=== PATIENT | female | born 1995 ===

== ENCOUNTER 2023-05-01 11:27 | Emergency (ER) | payer MEDICAID, SELFPAY ==
--- NOTE | 2023-05-01 11:30 | ED.HA ---
HPI - Headache General Chief Complaint: Headache Stated Complaint: Headaches Time Seen by Provider: 05/01/23 13:36 Source: patient Mode of arrival: ambulatory Limitations: no limitations History of Present Illness HPI Narrative: 27-year-old female without significant medical history presents to the emergency department with frontal headache, pressure bilaterally, and intermittent left eye pressure without visual changes or pain with eye movement, this started 2 weeks ago and has been present intermittently ever since then. Under alot of stressors, reports recently seperated, kids are in [facility], feels overwhelmed. Stress makes the headache worse, unable to tell me would also makes it better worse. Pain is not improved by lying flat. She does report that when she takes ibuprofen the pain improves however it comes back. No SI or HI. No hallucinations. Patient denies dizziness, head trauma, fevers, chills, neck pain, chest pain, shortness of breath, vision changes, dizziness, weakness, changes in speech, difficulties with gait. NIH stroke scale 0. Related Data Previous Rx's Medication Instructions Recorded diphenhydramine HCl 25 mg capsule 25 mg PO TID PRN allergic reaction 05/01/23 (Benadryl) #20 caps ketorolac 10 mg tablet 10 mg PO TID PRN pain 5 days #15 05/01/23 tabs metoclopramide HCl 10 mg tablet 10 mg PO Q6H PRN headache #20 tabs 05/01/23 (Reglan) Allergies Allergy/AdvReac Type Severity Reaction Status Date / Time No Known Allergies Allergy Verified 05/01/23 11:30 Review of Systems Review of Systems: Constitutional : No Fever, No Chills, No Fatigue ENT/Mouth : No sore throat, No Rhinorrhea Eyes: No Eye Pain, No Swelling, No Redness Cardiovascular : No Chest Pain, No SOB, No Dyspnea on Exertion Respiratory : No Cough, No Sputum Gastrointestinal : No Nausea, No Vomiting, No Diarrhea, No abdominal Pain Genitourinary : No Dysuria, No Urinary Frequency, No Hematuria, Musculoskeletal : No joint pain, No Myalgias, No Joint Swelling Skin : No Skin Lesions, No rash Neuro : No Weakness, No Numbness, No Dizziness, + Headache Psych : + Anxiety/Panic, + Depression, No SI or HI Heme/Lymph: No Bruising, No Bleeding,No Lymphadenopathy Endocrine : No Polyuria, No Polydipsia All other systems reviewed and are negative Yes all other systems are reviewed and are negative [facility] Past Medical History Attestation statement: The following information was validated with the patient. Source: old records reviewed and nursing notes reviewed Social History Social History Alcohol intake: current Alcohol intake frequency: holidays/special occasions only Smoked in Last 30 Days: No Use of substances other than those prescribed or required for medical reasons: Yes Substance Use Type: Marijuana Advance Directives: No Advance Directives Information Provided: Yes Patient : No Physical Exam Vital Signs: Vital Signs: Last Vital Signs Temp 98.3 F 05/01/23 13:52 Pulse 49 L 05/01/23 13:52 Resp 16 05/01/23 13:52 BP 116/58 L 05/01/23 13:52 Pulse Ox 100 05/01/23 13:52 O2 Del Method Room Air 05/01/23 13:52 BMI result Body Mass Index 27.4 Vital signs stable Appearance: Alert.? Oriented X3.? No acute distress.? Head: Normocephalic, atraumatic, no step-offs or deformities Eyes: Pupils equal, round and reactive to light.? Extraocular movements intact and pain-free. ENT: Pharynx normal.? Neck: Normal inspection.? Neck supple.? CVS: Normal heart rate and rhythm.? Pulses normal.? Respiratory: No respiratory distress.? Breath sounds normal.? Abdomen: Soft and nontender.? Skin: Skin warm and dry.? Normal skin color.? Normal skin turgor.? Extremities: No lower extremity edema.? No calf ttp. 5/5 strength to bilateral upper and lower extremities Neuro: Oriented X 3.? No motor deficit.? No sensory deficit. CN 2-12 intact normal [id number], [id number], steady tandem gait with normal coordination. Course Course Course Narrative: This is an RME: Additional HPI, ROS, PE not included below will be deferred to primary provider. Patient is a 27-year-old female who presents emergency department for evaluation of headaches. Onset 1-2 weeks ago, has been intermittent, diffuse, alleviates with tylenol. Denies fever, neck pain/stiffness, photosensitivity, nausea, vomiting, vision changes. Plan: Serum labs, hCG, pain management, placed in waiting room pending bed availability Reevaluation(s) Reevaluation #1: CBC unremarkable. Chemistry with no acute findings requiring intervention. UA pending, urine pending. Ordered Toradol, Reglan and Benadryl, pending re-evaluation likely discharge home. Time: 13:44 Reevaluation #2: This patient does not require a full care team consult no SI, HI or psychosis, vague complaints of depression and anxiety however, I did speak to care team who will provide patient with outpatient providers and resources. Time: 13:57 Reevaluation #3: Inflammatory markers within normal limits. Unlikely vasculitis or temporal arteritis. Pending improvement. Time: 14:33 Additional Reevaluation(s): Patient reports she is feeling much better. Reports some soreness to injection site of Toradol I explained to her and reassured her that this is normal. Advised her to apply warm compresses. Will discharge home on Reglan, Benadryl and Toradol. Will give her Neurology follow-up. Educated patient on diagnosis and treatment plan, answered all question, patient verbalizes understanding. At this time patient will be discharged home, advised to return with new or worsening symptoms. Educated on worrisome signs and symptoms and when to return. At this time I feel comfortable discharge home. At time of discharge negative NIH stroke scale. Patient feeling better. Reassuring Medications Administered Discontinued Medications Generic Name Dose Route Start Last Admin Trade Name Freq PRN Reason Stop Dose Admin Diphenhydramine HCl 25 mg 05/01/23 13:43 05/01/23 14:23 Diphenhydramine Hcl 25 Mg Capsule PO 05/01/23 13:44 25 mg ONCE ONE Administration Ketorolac Tromethamine 30 mg 05/01/23 13:43 05/01/23 14:23 Ketorolac Tromethamine 30 Mg/Ml Vial IM 05/01/23 13:44 30 mg ONCE ONE Administration Metoclopramide HCl 10 mg 05/01/23 13:43 05/01/23 14:23 Metoclopramide Hcl 10 Mg Tablet PO 05/01/23 13:44 10 mg ONCE ONE Administration Medical Decision Making Medical Decision Making MDM Narrative: 19-year-old female presents with frontal headache described as tightness for the past 2 weeks and left eye pressure. Intermittent. Physical exam benign. Neuro nonfocal. Cerebellar intact. NIH stroke scale 0. Patient tearful. Likely headache secondary to stress ( tension type) unlikely intracranial hemorrhage, stroke, posterior stroke, temporal arteritis, giant cell arteritis. History and physical exam not consistent with meningitis or encephalitis. History and physical exam not consistent with wet macular degeneration or acute closed angle glaucoma, no visual loss, she just feels pressure behind her eyes sometimes. Unlikely that this is pseudotumor cerebri Plan at this time labs, pain control Differential Diagnosis Differential Diagnoses: The differential diagnosis associated with the presentation includes Likely headache secondary to stress ( tension type) unlikely intracranial hemorrhage, stroke, posterior stroke, temporal arteritis, giant cell arteritis. History and physical exam not consistent with meningitis or encephalitis. History and physical exam not consistent with wet macular degeneration or acute closed angle glaucoma, no visual loss, she just feels pressure behind her eyes sometimes. Unlikely that this is pseudotumor cerebri Admission/Observation Consideration of admission/observation: Escalation of care including admission/observation considered Unlikely Lab Data MDM Lab Attestation statement: I reviewed the patient's lab results. 05/01/23 12:04 05/01/23 12:04 Labs: Lab Results 05/01/23 05/01/23 05/01/23 Range/Units 12:04 12:04 14:11 WBC 7.9 (4.8-10.8) X10*3/uL RBC 4.03 L (4.20-5.50) X10*6/uL Hgb 12.5 (12.0-16.0) g/dl Hct 37.4 (37.0-47.0) % MCV 92.8 (80.0-98.0) fL MCH 31.0 (27.0-33.0) pg MCHC 33.4 (31.0-35.0) g/dl RDW 12.6 (11.0-16.0) % Plt Count 232 (160-400) X10*3/uL MPV 9.2 L (9.4-12.3) fL Immature Gran % (Auto) 0.3 (0.0-0.4) % Neut % (Auto) 81.5 H (45-73) % Lymph % (Auto) 12.1 L (20-40) % [place] % (Auto) 5.5 (2-11) % Eos % (Auto) 0.3 (0-4) % Baso % (Auto) 0.3 (0-2) % Lymph # (Auto) 1.0 L (1.2-4.9) X10*3/uL [place] # (Auto) 0.4 (0.1-1.2) X10*3/uL Eos # (Auto) 0.0 (0.0-0.4) X10*3/uL Baso # (Auto) 0.0 (0.0-0.2) X10*3/uL Abs Immat Gran (auto) 0.02 (0.00-0.03) X10*3/uL Absolute Neuts (auto) 6.4 (2.0-8.3) x10*3/uL Absolute Nucleated RBC 0.000 (0.0-0.012) X10*3/uL Nucleated RBC % (auto) 0.0 (0.0-0.2) /100WBC Sodium 141 (135-145) mmol/L Potassium 4.1 (3.3-5.1) mmol/L Chloride 108 (96-108) mmol/L Carbon Dioxide 26 (22-29) mmol/L Anion Gap 11 L (12-20) BUN 8 L (9-16) mg/dL Creatinine 0.76 (0.5-1.4) mg/dL Estim Creat Clear Calc 95.6 Estimated GFR > 60 Random Glucose 102 (60-115) mg/dL Calcium 9.3 (8.4-10.2) mg/dL Magnesium 1.9 (1.6-2.6) mg/dL C-Reactive Protein 0.20 (< or = 0.50) mg/dL Urine Color Yellow Urine Appearance Clear Urine pH 6.5 (5.0-9.0) Ur Specific [place] 1.015 (1.005-1.025) Urine Protein Negative (Neg-Trace) mg/dL Urine Glucose (UA) Negative (Negative) mg/dL Urine Ketones Trace (Negative) mg/dL Urine Blood Negative (Negative) Urine Nitrite Negative (Negative) Ur Leukocyte Esterase Negative (Negative) Urine Test (NEGATIVE) 05/01/23 Range/Units 14:11 WBC (4.8-10.8) X10*3/uL RBC (4.20-5.50) X10*6/uL Hgb (12.0-16.0) g/dl Hct (37.0-47.0) % MCV (80.0-98.0) fL MCH (27.0-33.0) pg MCHC (31.0-35.0) g/dl RDW (11.0-16.0) % Plt Count (160-400) X10*3/uL MPV (9.4-12.3) fL Immature Gran % (Auto) (0.0-0.4) % Neut % (Auto) (45-73) % Lymph % (Auto) (20-40) % [place] % (Auto) (2-11) % Eos % (Auto) (0-4) % Baso % (Auto) (0-2) % Lymph # (Auto) (1.2-4.9) X10*3/uL [place] # (Auto) (0.1-1.2) X10*3/uL Eos # (Auto) (0.0-0.4) X10*3/uL Baso # (Auto) (0.0-0.2) X10*3/uL Abs Immat Gran (auto) (0.00-0.03) X10*3/uL Absolute Neuts (auto) (2.0-8.3) x10*3/uL Absolute Nucleated RBC (0.0-0.012) X10*3/uL Nucleated RBC % (auto) (0.0-0.2) /100WBC Sodium (135-145) mmol/L Potassium (3.3-5.1) mmol/L Chloride (96-108) mmol/L Carbon Dioxide (22-29) mmol/L Anion Gap (12-20) BUN (9-16) mg/dL Creatinine (0.5-1.4) mg/dL Estim Creat Clear Calc Estimated GFR Random Glucose (60-115) mg/dL Calcium (8.4-10.2) mg/dL Magnesium (1.6-2.6) mg/dL C-Reactive Protein (< or = 0.50) mg/dL Urine Color Urine Appearance Urine pH (5.0-9.0) Ur Specific [place] (1.005-1.025) Urine Protein (Neg-Trace) mg/dL Urine Glucose (UA) (Negative) mg/dL Urine Ketones (Negative) mg/dL Urine Blood (Negative) Urine Nitrite (Negative) Ur Leukocyte Esterase (Negative) Urine Test NEGATIVE (NEGATIVE) Tests considered The following testing was considered but not selected: No red flag symptoms, neuro non focal, NIH stroke scale 0. No indication for CT of head or MRI of brain. Low suspicion for stroke. No need for lumbar puncture unlikely meningitis or encephalitis. Prescription Management I considered prescription management with: Pain Medication Core Measures AMI core measures followed: Yes Measure exclusions: not indicated Critical Care Time Critical Care Time Critical Care Time: No Discharge Plan Discharge Clinical Impression: Headache, Anxiety, Depression Patient Disposition: Home, Self-Care Instructions: Depression (ED), Acute Headache (ED), Anxiety (ED) Additional Instructions: Take your medications as prescribed. If you were prescribed antibiotics today, it is important that you take your medication to their entirety, do not skip any doses, do not finish them early. Follow-up with your primary care provider this week. Return to the emergency department with new or worsening symptoms. Such as fevers, chills, chest pain, shortness of breath, nausea, vomiting, dizziness, headache, vision changes, lethargy, suicidal or homicidal ideation In case of emergency call 911 Follow-up with neurology if needed. Toradol has been sent to your pharmacy, you tolerated this well in the department. Please take this as prescribed do not take this with ibuprofen, or other NSAIDs, do not mix this with alcohol. Side effects of this medication including increased risk for bleeding and possible kidney injury. Please take Reglan and Benadryl together, do not take Reglan alone he can cause involuntary muscle spasms. [place] abeba medicamentos seg?n lo prescrito. Si le recetaron antibi?ticos hoy, es importante que tome [place] medicamento en [place] totalidad, no se salte ninguna dosis, no los termine antes de tiempo. Seguimiento con [place] proveedor de atenci?n primaria esta semana. Regrese al departamento de emergencias con s?ntomas nuevos o que empeoran. Isabela fiebre, escalofr?os, dolor de pecho, dificultad para respirar, n?useas, v?mitos, mareos, dolor de leila, cambios en la visi?n, letargo, ideaci?n suicida u homicida. En damaris de emergencia llama al 911 Seguimiento con neurolog?a si es necesario. Toradol rosales sido enviado a [place] farmacia, lo anson? sundar en el departamento. T?gutierrez seg?n lo recetado, no lo tome con ibuprofeno u otros YULI, no lo mezcle con alcohol. Los efectos secundarios de arelis medicamento incluyen un mayor riesgo de sangrado y posible lesi?n renal. Por favor, tome Reglan y Benadryl juntos, no tome Reglan solo, puede causar espasmos musculares involuntarios. Prescriptions: New ketorolac 10 mg tablet 10 mg PO TID PRN (Reason: pain) 5 Days Qty: 15 0RF diphenhydramine HCl [Benadryl] 25 mg capsule 25 mg PO TID PRN (Reason: allergic reaction) Qty: 20 0RF metoclopramide HCl [Reglan] 10 mg tablet 10 mg PO Q6H PRN (Reason: headache) Qty: 20 0RF Referrals: [facility] [Provider Group] - 2 days Physician,Unknown J [Primary Care Provider] - 2 days Stand Alone Forms: Work/School Release
[2023-05-01 11:31] VITALS: BP 112/53; PULSE 58; RESP 18; TEMP 36.6; O2SAT 97; BMI 27.4
[2023-05-01 12:08] LABS: MANUAL DIFF FLAG NO
[2023-05-01 12:10] LABS: Basophils Percent Auto 0.3 % (0-2); Eosinophils Percent Auto 0.3 % (0-4); Hematocrit 37.4 % (37.0-47.0); Hemoglobin 12.5 g/dl (12.0-16.0); Imm Gran Abs Auto 0.02 X10*3/uL (0.00-0.03); Imm Gran Pct Auto 0.3 % (0.0-0.4); Lymphocytes Percent Auto 12.1 % (20-40); Mean Corpuscular HGB Conc 33.4 g/dl (31.0-35.0); Mean Corpuscular Volume 92.8 fL (80.0-98.0); Mean Platelet Volume 9.2 fL (9.4-12.3); Monocytes Absolute Auto 0.4 X10*3/uL (0.1-1.2); Monocytes Percent Auto 5.5 % (2-11); Neutrophils Absolute Auto 6.4 x10*3/uL (2.0-8.3); Neutrophils Percent Auto 81.5 % (45-73); Platelet Count 232 X10*3/uL (160-400); Red Blood Count 4.03 X10*6/uL (4.20-5.50); Red Cell Distribution Width 12.6 % (11.0-16.0); White Blood Count 7.9 X10*3/uL (4.8-10.8)
[2023-05-01 12:24] LABS: Anion Gap 11 (12-20); Blood Urea Nitrogen 8 mg/dL (9-16); Calcium 9.3 mg/dL (8.4-10.2); Carbon Dioxide 26 mmol/L (22-29); Chloride 108 mmol/L (96-108); Creatinine Clr Calc Pharmacy 95.6; Estimated Glomerular Filt Rate > 60; Glucose Random 102 mg/dL (60-115); Magnesium 1.9 mg/dL (1.6-2.6); Potassium 4.1 mmol/L (3.3-5.1); Sodium 141 mmol/L (135-145)
[2023-05-01 13:52] VITALS: BP 116/58; PULSE 49; RESP 16; TEMP 36.8; O2SAT 100
[2023-05-01 14:19] LABS: Appearance Urine Clear; Color Urine Yellow; Glucose Urine UA Negative (Negative); Leukocyte Esterase Urine Negative (Negative); Nitrite Urine Negative (Negative); PH 6.5 (5.0-9.0); Specific Gravity - Urine 1.015 (1.005-1.025); Urine Blood Negative (Negative); Urine Ketones Trace mg/dL (Negative); Urine Protein Negative (Neg-Trace)
[2023-05-01 14:20] LABS: UPreg QC Valid YES; Urine Pregnancy NEGATIVE (NEGATIVE)
[2023-05-01] MEDS: Ketorolac Tromethamine 30 MG/ML VIAL IM (14:23)
[2023-05-01] MEDS: Metoclopramide HCl 10 MG TABLET PO (14:23)
[2023-05-01] MEDS: diphenhydrAMINE HCL 25 MG CAPSULE PO (14:23)
[2023-05-01 14:36] LABS: Erythrocyte Sedimentation Rate 5 MM/HR (0-20)
== END 2023-05-01 14:59 | disposition home or self-care (01) ==
PROVIDERS: Nurse Practitioner Family; Physician Assistant; Emergency Provider Emergency Medicine Emergency Medical Services
DX: R51.9 Headache, unspecified (principal); F41.8 Other specified anxiety disorders; Z79.899 Other long term (current) drug therapy
CPT/HCPCS: 36415; 80048; 81003; 81025; 83735; 85025; 85652; 86140; 96372; 99284; J1885

== ENCOUNTER 2023-05-03 09:25 | Emergency (ER) | payer MEDICAID, SELFPAY ==
--- NOTE | ~2023-05-03 | XR_ITS ---
EXAMINATION: XR CHEST CLINICAL INFORMATION: Acute chest pain for one week. COMPARISON: None available. TECHNIQUE: 2 views of the chest were obtained. FINDINGS: No significant abnormality is noted involving the heart, lungs, mediastinum, bony thorax or soft tissues. XR/XR chest 2V IMPRESSION: No acute cardiopulmonary process.
[2023-05-03 09:43] VITALS: BP 119/69; PULSE 62; RESP 18; TEMP 36.1; O2SAT 99; BMI 27.4
--- NOTE | 2023-05-03 09:53 | ECG_ITS ---
Test Reason : nadeaj Blood Pressure : / mmHG Vent. Rate : 047 BPM Atrial Rate : 047 BPM P-R Int : 120 ms QRS Dur : 092 ms QT Int : 422 ms P-R-T Axes : 064 030 048 degrees QTc Int : 373 ms Sinus bradycardia Nonspecific T wave abnormality Abnormal ECG No previous ECGs available Referred By: Generic ED Physician Electronically Signed By:LEILANI SABA MD
[2023-05-03 10:07] LABS: MANUAL DIFF FLAG NO
[2023-05-03 10:08] LABS: Basophils Percent Auto 0.3 % (0-2); Eosinophils Percent Auto 0.7 % (0-4); Hematocrit 36.5 % (37.0-47.0); Hemoglobin 12.3 g/dl (12.0-16.0); Imm Gran Abs Auto 0.02 X10*3/uL (0.00-0.03); Imm Gran Pct Auto 0.3 % (0.0-0.4); Lymphocytes Absolute Auto 1.1 X10*3/uL (1.2-4.9); Lymphocytes Percent Auto 18.8 % (20-40); Mean Corpuscular HGB Conc 33.7 g/dl (31.0-35.0); Mean Corpuscular Volume 91.9 fL (80.0-98.0); Mean Platelet Volume 9.5 fL (9.4-12.3); Monocytes Absolute Auto 0.5 X10*3/uL (0.1-1.2); Monocytes Percent Auto 8.7 % (2-11); Neutrophils Absolute Auto 4.2 x10*3/uL (2.0-8.3); Neutrophils Percent Auto 71.2 % (45-73); Platelet Count 207 X10*3/uL (160-400); Red Blood Count 3.97 X10*6/uL (4.20-5.50); Red Cell Distribution Width 12.4 % (11.0-16.0); White Blood Count 5.9 X10*3/uL (4.8-10.8)
[2023-05-03 10:22] LABS: Alanine Aminotransferase 12 U/L (0-31); Albumin Level 4.1 g/dL (3.5-5.0); Alkaline Phosphatase 66 U/L (39-117); Anion Gap 9 (12-20); Aspartate Amino Transferase 12 U/L (5-31); Bilirubin Total 0.7 mg/dL (0.0-1.0); Blood Urea Nitrogen 11 mg/dL (9-16); Calcium 9.5 mg/dL (8.4-10.2); Carbon Dioxide 26 mmol/L (22-29); Chloride 110 mmol/L (96-108); Creatinine Clr Calc Pharmacy 95.6; Estimated Glomerular Filt Rate > 60; Glucose Fasting 97 mg/dL (60-99); Potassium 3.4 mmol/L (3.3-5.1); Sodium 142 mmol/L (135-145); Total Protein 7.1 g/dL (6.5-8.0)
[2023-05-03 10:31] LABS: Troponin-I High Sensitivity < 2.7 ng/L (<3.5-17.0)
[2023-05-03 12:07] VITALS: BP 121/58; PULSE 46; RESP 16; TEMP 36.8; O2SAT 100
--- NOTE | 2023-05-03 12:09 | ED_ITS ---
HPI - Chest Pain General Chief Complaint: Chest Pain Stated Complaint: Body & Head Pain Time Seen by Provider: 05/03/23 11:48 Source: patient Mode of arrival: ambulatory Limitations: no limitations History of Present Illness HPI narrative: 27-year-old female presents with chest pain. Chest pain started 1 week ago. Is intermittent. Pressure-like in nature. The pain can be moderate to severe. It is not associated with exertion. Randomly starts and randomly stops. It is not associated with nausea, vomiting or shortness breath. She denies any palpitations or lightheadedness. Patient has no cardiac history. She has no family history of sudden cardiac . She denies any recent traveling, surgery, lower extremity edema. She has no history of pulmonary embolus or DVT. Patient was recently seen in the emergency department for headache as well as chest pain. Her workup was reportedly negative. She was sent home with headache related medications. However, her chest pain is continued to occur. Associated with significant amounts of anxiety and stress. Related Data Previous Rx's Medication Instructions Recorded ketorolac 10 mg tablet 10 mg PO TID PRN pain 5 days #15 05/01/23 tabs metoclopramide HCl 10 mg tablet 10 mg PO Q6H PRN headache #20 tabs 05/01/23 (Reglan) hydroxyzine HCl 25 mg tablet 25 mg PO TID PRN anxiety #10 tabs 05/03/23 Allergies Allergy/AdvReac Type Severity Reaction Status Date / Time No Known Allergies Allergy Verified 05/03/23 09:43 Review of Systems Review of Systems: CONSTITUTIONAL: Denies weight loss, fever and chills. HEENT: Denies changes in vision and hearing. RESPIRATORY: Denies SOB and cough. CV: Denies palpitations + CP. GI: Denies abdominal pain, nausea, vomiting and diarrhea. : Denies dysuria and urinary frequency. MSK: Denies myalgia and joint pain. SKIN: Denies rash and pruritus. NEUROLOGICAL: Denies headache and syncope. PSYCHIATRIC: + recent changes in mood. + anxiety and depression. All other ROS are negative unless in HPI PMFSH Social History Social History Alcohol intake: current Alcohol intake frequency: holidays/special occasions only Substance Use Type: Marijuana Advance Directives: No Physical Exam Vital Signs: Vital Signs: Last Vital Signs Temp 98.3 F 05/03/23 12:07 Pulse 46 L 05/03/23 12:07 Resp 16 05/03/23 12:07 BP 121/58 L 05/03/23 12:07 Pulse Ox 100 05/03/23 12:07 O2 Del Method Room Air 05/03/23 12:07 BMI result Body Mass Index 27.4 GEN: Well developed, no acute distress, alert, oriented HEENT: Normocephalic, atraumatic, normal external ears, nose appears normal, no oropharyngeal edema or exudates Eyes: Normal to appearance Neck: Supple, no lymphadenopathy Respiratory: Talks in complete sentences, no respiratory distress, clear to auscultation bilaterally Cardiovascular: Regular rate and rhythm, no murmurs rubs or gallops Abdomen: Soft, nontender, nondistended, no guarding, no rebound Back: No CVA tenderness Extremities: No clubbing cyanosis or edema Neurologic: No focal neurologic deficits, cranial nerves 2-12 intact, strength is 5/5 bilaterally Skin: No rash Course Course Course Narrative: Patient's workup is complete. Patient is having chest pain for the past week intermittently. Cardiac enzymes have been negative. She has no risk factors for pulmonary embolus or perc score is 0. There is no indication to try D-dimer or do a CT scan angiogram of the chest. Her EKG shows sinus bradycardia without acute ischemia. I doubt this is angina. She is young and otherwise healthy with no significant risk factors. With a week of intermittent symptoms, a troponin is virtually diagnostic no further testing is required. I do not believe patient symptoms warrant a referral to Cardiology at this time. However, I certainly believe that her symptoms are no small way related to stress, anxiety. Will start the patient on hydroxyzine. Will refer patient to our [facility] for consideration of therapy and possible chronic medications. Patient can return at any point time for recurrent symptoms. She has been made aware of this. All questions were addressed and answered. She was certainly reassured by her laboratory results. Medical Decision Making Medical Decision Making MDM Narrative: Or 27-year-old female presents with chest pain. Examination is benign. EKG shows sinus bradycardia without ischemic changes. Patient has no risk for actors for pulmonary embolus and her PERC score is 0. There is no indication for CT angiogram of the chest. Her symptoms do appear to be since significantly associated with anxiety and panic. Will try the hydroxyzine for symptoms. In addition, we will perform a set of cardiac enzymes which 1 test would be diagnostic since her symptoms have been going on for week. Differential diagnosis includes stress, anxiety, panic, atypical pain, musculoskeletal pain, doubt pulmonary embolus, dissection, pneumonia. Differential Diagnosis Differential Diagnoses: The differential diagnosis associated with the presentation includes (See above) Admission/Observation Consideration of admission/observation: Escalation of care including admission/observation considered Lab Data MDM Lab Attestation statement: I reviewed the patient's lab results. 05/03/23 10:01 05/03/23 09:57 Labs: Lab Results 05/03/23 05/03/23 05/03/23 Range/Units 09:57 10:01 10:02 WBC 5.9 (4.8-10.8) X10*3/uL RBC 3.97 L (4.20-5.50) X10*6/uL Hgb 12.3 (12.0-16.0) g/dl Hct 36.5 L (37.0-47.0) % MCV 91.9 (80.0-98.0) fL MCH 31.0 (27.0-33.0) pg MCHC 33.7 (31.0-35.0) g/dl RDW 12.4 (11.0-16.0) % Plt Count 207 (160-400) X10*3/uL MPV 9.5 (9.4-12.3) fL Immature Gran % (Auto) 0.3 (0.0-0.4) % Neut % (Auto) 71.2 (45-73) % Lymph % (Auto) 18.8 L (20-40) % [place] % (Auto) 8.7 (2-11) % Eos % (Auto) 0.7 (0-4) % Baso % (Auto) 0.3 (0-2) % Lymph # (Auto) 1.1 L (1.2-4.9) X10*3/uL [place] # (Auto) 0.5 (0.1-1.2) X10*3/uL Eos # (Auto) 0.0 (0.0-0.4) X10*3/uL Baso # (Auto) 0.0 (0.0-0.2) X10*3/uL Abs Immat Gran (auto) 0.02 (0.00-0.03) X10*3/uL Absolute Neuts (auto) 4.2 (2.0-8.3) x10*3/uL Absolute Nucleated RBC 0.000 (0.0-0.012) X10*3/uL Nucleated RBC % (auto) 0.0 (0.0-0.2) /100WBC Sodium 142 (135-145) mmol/L Potassium 3.4 (3.3-5.1) mmol/L Chloride 110 H (96-108) mmol/L Carbon Dioxide 26 (22-29) mmol/L Anion Gap 9 L (12-20) BUN 11 (9-16) mg/dL Creatinine 0.76 (0.5-1.4) mg/dL Estim Creat Clear Calc 95.6 Estimated GFR > 60 Fasting Glucose 97 (60-99) mg/dL Calcium 9.5 (8.4-10.2) mg/dL Total Bilirubin 0.7 (0.0-1.0) mg/dL AST 12 (5-31) U/L ALT 12 (0-31) U/L Alkaline Phosphatase 66 (39-117) U/L Troponin I High Sens < 2.7 (<3.5-17.0) ng/L Total Protein 7.1 (6.5-8.0) g/dL Albumin 4.1 (3.5-5.0) g/dL Independent Interpretation I performed an independent interpretation of an: EKG (Sinus bradycardia heart rate 47, nonspecific ST T wave changes, no acute ST elevations depressions.) and Plain X-Ray (Chest: No acute cardiopulmonary disease) Tests considered The following testing was considered but not selected: CT angio of the chest, not indicated Prescription Management I considered prescription management with: Other (Anxiety medications) Discharge Plan Discharge Clinical Impression: Atypical chest pain, Panic anxiety syndrome Patient Disposition: Home, Self-Care Instructions: Chest Pain (ED), Panic Disorder (ED), Cognitive Behavioral Therapy (ED), Anxiety (ED) Prescriptions: New hydroxyzine HCl 25 mg tablet 25 mg PO TID PRN (Reason: anxiety) Qty: 10 0RF Discontinued diphenhydramine HCl [Benadryl] 25 mg capsule 25 mg PO TID PRN (Reason: allergic reaction) Qty: 20 0RF No Action ketorolac 10 mg tablet 10 mg PO TID PRN (Reason: pain) 5 Days Qty: 15 0RF metoclopramide HCl [Reglan] 10 mg tablet 10 mg PO Q6H PRN (Reason: headache) Qty: 20 0RF Referrals: [facility] [Provider Group]
[2023-05-03] MEDS: hydrOXYzine HCL 25 MG TABLET PO (12:35)
== END 2023-05-03 12:42 | disposition home or self-care (01) ==
PROVIDERS: Emergency Provider Emergency Medicine
DX: R07.89 Other chest pain (principal); F41.0 Panic disorder [episodic paroxysmal anxiety]; F12.90 Cannabis use, unspecified, uncomplicated
CPT/HCPCS: 36415; 71046; 80053; 84484; 85025; 93005; 99283; 99285

== ENCOUNTER → 2023-05-03 09:53 | Outpatient (BNV) | payer MEDICAID, SELFPAY | PROVIDERS: Emergency Provider Emergency Medicine; Visit Provider Internal Medicine Cardiovascular Disease | DX: R00.1 Bradycardia, unspecified (principal) | CPT/HCPCS: 93010 ==

== ENCOUNTER 2023-12-10 12:15 | Emergency (ER) | payer MEDICAID, SELFPAY ==
--- NOTE | ~2023-12-10 | XR_ITS ---
EXAMINATION: XR CHEST 2 VIEW CLINICAL INFORMATION: Chest pressure COMPARISON: 05/03/2023 TECHNIQUE: PA and lateral views of the chest obtained. FINDINGS: The lungs are clear. There are no pleural effusions. The cardiomediastinal silhouette is normal. XR/XR chest 2V IMPRESSION: No acute cardiopulmonary disease.
--- NOTE | ~2023-12-10 | CT_ITS ---
EXAMINATION: CT HEAD WITHOUT CONTRAST CLINICAL INFORMATION: Diffuse pressure COMPARISON: None available. TECHNIQUE: Contiguous axial imaging was performed from the skull base to vertex without intravenous administration of contrast. This CT examination was performed using dose optimization techniques as appropriate, variously including the following: *Automated exposure control *Adjustment of mA and/or kV according to patient size (this includes techniques or standardized protocols for targeted exams where dose is matched to indication/reason for exam; i.e. extremities or head) *Use of iterative reconstruction technique DLP: 550 mGy-cm FINDINGS: No acute intracranial hemorrhage or infarct. The morris-white matter differentiation is preserved. No midline shift or hydrocephalus. No acute extra-axial fluid collections. The osseous structures are unremarkable. No orbital pathology. Moderate mucosal thickening of the sphenoid sinuses with partial opacification, right greater than left. There is complete opacification of the bilateral sphenoid ostia Mastoid air cells are clear. CT/CT head/brain wo IV con IMPRESSION: -No acute intracranial abnormality. -Moderate sphenoid sinus disease.
--- NOTE | 2023-12-10 12:18 | ECG_ITS ---
Test Reason : CHEST PAIN Blood Pressure : / mmHG Vent. Rate : 050 BPM Atrial Rate : 050 BPM P-R Int : 122 ms QRS Dur : 090 ms QT Int : 438 ms P-R-T Axes : 061 037 051 degrees QTc Int : 399 ms Sinus bradycardia Nonspecific T wave abnormality Abnormal ECG When compared with ECG of 03-MAY-2023 09:56, No significant change was found Referred By: Generic ED Physician Electronically Signed By:ELMER NAIK
--- NOTE | 2023-12-10 12:49 | ED.GENADULT ---
HPI - General Adult General Chief complaint: Upper Respiratory Symptoms Stated complaint: Chest pain, headache Time Seen by Provider: 12/10/23 14:34 Source: patient, family (father) and master data analyst (Cambodian) Mode of arrival: ambulatory Limitations: language barrier (Cambodian-speaking) History of Present Illness HPI narrative: 28 year old female with pmhx significant for anxiety presents to the ED today for evaluation of headache x 2 days. Headache is worse with bending forward. It is isolated to her forehead. The pain is described as a constant aching sensation. Additionally she endorses nasal congestion. She has been taking ibuprofen and Tylenol without relief of symptoms. Denies sick contacts. Denies fever, chills, sore throat, cough, chest pain, difficulty breathing, nausea vomiting, vision changes. She also admits to chest pressure intermittently over the past year. She states that she was diagnosed with anxiety at [facility] 1 year ago. She has since followed up with her primary care provider who has placed her on hydroxyzine. She has been taking this without relief of symptoms. She states she does not know how to describe this chest pressure. It will occur at random times. No clear exacerbating or relieving factors. She is unsure if this is related to her anxiety. denies dyspnea, sob, numbness/tingling. denies recent travel or long car rides. Related Data Previous Rx's Medication Instructions Recorded ketorolac 10 mg tablet 10 mg PO TID PRN pain 5 days #15 05/01/23 tabs metoclopramide HCl 10 mg tablet 10 mg PO Q6H PRN headache #20 tabs 05/01/23 (Reglan) hydroxyzine HCl 25 mg tablet 25 mg PO TID PRN anxiety #10 tabs 05/03/23 amoxicillin 875 mg-potassium 1 tab PO BID 7 days #14 tabs 12/10/23 clavulanate 125 mg tablet Allergies Allergy/AdvReac Type Severity Reaction Status Date / Time No Known Allergies Allergy Verified 05/03/23 09:43 Review of Systems Review of Systems: Constitutional: No fever, chills, fatigue, night sweats, weight changes ENT/Mouth: No ear pain, hearing loss, nasal congestion, sinus pain, rhinorrhea, sore throat Eyes: No eye pain, swelling, redness, vision changes, discharge Cardio: No chest pain, palpitations, LR, orthopnea, peripheral edema, +chest pressure Pulm: No SOB, cough, sputum, wheezing, dyspnea, hemoptysis GI: No nausea, vomiting, hematemesis, abdominal pain, diarrhea, constipation, hematochezia, melena : No irregular bleeding, dysuria, frequency, urgency, hesitancy, hematuria, flank pain, urinary flow changes, urinary incontinence or retention MSK: No back pain, neck pain, joint pain, myalgias Skin: No lesions, rashes Neuro: No weakness, numbness, paresthesias, LOC, dizziness, +headache Psych: No anxiety/panic, depression, SI/HI, AH/VH All other systems reviewed and are negative. [facility] Past Medical History Attestation statement: The following information was validated with the patient. Source: old records reviewed and nursing notes reviewed Social History Social History Alcohol intake: never Substance Use Type: Marijuana Advance Directives: No Advance Directives Information Provided: No Physical Exam ED Vital Signs: Vital Signs - 24 hr 12/10/23 12:50 Temperature 97.9 F Pulse Rate 55 Respiratory Rate 16 Blood Pressure 138/57 L Pulse Oximetry 99 BMI result Body Mass Index 25.2 Vital signs stable. Const General: cooperative, healthy appearing, comfortable and no acute distress Orientation/consciousness: patient oriented x3 Limitations: no limitations HENMT Other: + no scalp tenderness or palpable temporal aa + pain with percussion over frontal and maxillary sinuses. Head: Yes normal to inspection, Yes No palpable skull fracture present, Yes normocephalic and Yes atraumatic Ears: hearing grossly normal bilaterally, external ears normal, TM's normal bilaterally, EAC's normal, mastoids normal and no periauricular adenopathy General nose exam: Normal external nose present Mouth: Normal oral and palatal mucosa present Eyes Other: + perrla. no periorbital skin changes or edema. General: appearance normal, both eyes and all related structures Pupils: Equal, round and reactive pupils present EOM: EOMs intact bilaterally Neck Neck: Yes normal visual inspection, Yes full ROM and Yes no lymphadenopathy Chest Chest palpation & inspection: normal inspection of the chest and normal palpation of entire chest wall Resp Effort & Inspection: normal respiratory effort Auscultation: clear to auscultation bilaterally Cardio Rate: bradycardic Rhythm: regular rhythm Skin General skin exam: no rashes or lesions noted Neuro General: patient oriented x3, gait normal and no focal motor deficits Cranial nerves: Yes Equal, round and reactive pupils present Gait exam (Neuro): Normal gait present Pupils: Normal pupillary reactivity/response: bilateral Course Course Course Narrative: LIONEL- 28 year old female presents for evaluation of headache, chest pressure, nausea. Plan for EKG and viral swabs Reevaluation(s) Reevaluation #1: [id number]-- patient tested negative for COVID, flu, RSV. CBC without leukocytosis or anemia. No left shift. Chemistry without acute electrolyte abnormality requiring intervention. Troponin undetectable. EKG showing sinus bradycardia at a rate of 50 bpm, no acute ischemic changes or ST elevations. When compared to prior visits, this appears to be around patient's baseline heart rate. Beta hCG undetectable. Chest x-ray does not show infiltrate or consolidation to suggest pneumonia. No effusion. CT scan head/brain shows moderate mucosal thickening of the sphenoid sinuses with partial opacification, right greater than left along with complete opacification of the bilateral sphenoid ostia. This may be consistent with a sinusitis/polyps. These CT scan findings correlate with physical exam. Patient to be treated for sinusitis. > on re-evaluation, patient reports some improvement in headache with Fioricet. I discussed all workup results with patient. Augmentin sent to pharmacy. Discussed worrisome signs and symptoms of when to return to the ED. all questions answered at this time. Patient is agreeable disposition and stable for discharge. Medications Administered Discontinued Medications Generic Name Dose Route Start Last Admin Trade Name Freq PRN Reason Stop Dose Admin Acetaminophen/Butalbital/Caffeine 1 tab 12/10/23 16:52 12/10/23 17:03 Butalb/Acetamin/Caff 50/325/40 Tablet PO 12/10/23 16:53 1 tab ONCE ONE Administration Medical Decision Making Medical Decision Making [facility] Narrative: 28 year old female with pmhx significant for anxiety presents to the ED today for evaluation of headache x 2 days. Vital signs stable. Afebrile. On exam, patient is nontoxic-appearing and in no acute distress. Exam nonfocal. Cerebellum intact. PERRLA. ttp of maxiallary and frontal sinues. Lungs are CTA bilaterally. Pulses 2+ and equal throughout. Ambulating with steady gait. Clinical concern for viral syndrome, sinusitis, migraine, headache, tension headache, anxiety, ACS, arrhythmia, pneumonia. Lower suspicion for CVA/TIA, dissection, cerebellar stroke. Plan for viral serology, chest x-ray, labs, CT head/brain, pain control and re-evaluation. Differential Diagnosis Differential Diagnoses: The differential diagnosis associated with the presentation includes As above. Admission/Observation Not indicated. Lab Data MDM Lab Attestation statement: I reviewed the patient's lab results. As above. 12/10/23 15:38 12/10/23 15:38 Labs: Lab Results 12/10/23 12/10/23 Range/Units 13:11 15:38 WBC 7.0 (4.8-10.8) X10*3/uL RBC 4.12 L (4.20-5.50) X10*6/uL Hgb 13.0 (12.0-16.0) g/dl Hct 37.9 (37.0-47.0) % MCV 92.0 (80.0-98.0) fL MCH 31.6 (27.0-33.0) pg MCHC 34.3 (31.0-35.0) g/dl RDW 12.2 (11.0-16.0) % Plt Count 259 D (160-400) X10*3/uL MPV 9.3 L (9.4-12.3) fL Immature Gran % (Auto) 0.3 (0.0-0.4) % Neut % (Auto) 58.9 (45-73) % Lymph % (Auto) 35.2 (20-40) % [place] % (Auto) 5.0 (2-11) % Eos % (Auto) 0.3 (0-4) % Baso % (Auto) 0.3 (0-2) % Lymph # (Auto) 2.5 (1.2-4.9) X10*3/uL [place] # (Auto) 0.4 (0.1-1.2) X10*3/uL Eos # (Auto) 0.0 (0.0-0.4) X10*3/uL Baso # (Auto) 0.0 (0.0-0.2) X10*3/uL Abs Immat Gran (auto) 0.02 (0.00-0.03) X10*3/uL Absolute Neuts (auto) 4.1 (2.0-8.3) x10*3/uL Absolute Nucleated RBC 0.000 (0.0-0.012) X10*3/uL Nucleated RBC % (auto) 0.0 (0.0-0.2) /100WBC PT 12.3 (11.1-13.3) SEC INR 1.0 (0.9-1.1) Sodium 141 (135-145) mmol/L Potassium 3.8 (3.3-5.1) mmol/L Chloride 105 (96-108) mmol/L Carbon Dioxide 30 H (22-29) mmol/L Anion Gap 10 L (12-20) BUN 8 L (9-16) mg/dL Creatinine 0.70 (0.5-1.4) mg/dL Estim Creat Clear Calc 103.0 Estimated GFR > 60 Random Glucose 95 (60-115) mg/dL Calcium 9.5 (8.4-10.2) mg/dL Magnesium 1.9 (1.6-2.6) mg/dL Total Bilirubin 0.6 (0.0-1.0) mg/dL AST 14 (5-31) U/L ALT 11 (0-31) U/L Alkaline Phosphatase 70 (39-117) U/L Troponin I High Sens < 2.7 (<3.5-17.0) ng/L Total Protein 7.3 (6.5-8.0) g/dL Albumin 4.2 (3.5-5.0) g/dL Lipase 16 (8-78) U/L Beta HCG, Quant < 2 mIU/mL Influenza Type A (PCR) NEGATIVE (Negative) Influenza Type B (PCR) NEGATIVE (Negative) RSV RNA Qual (PCR) NEGATIVE (Negative) SARS-CoV-2 RNA (RT-PCR) NEGATIVE (Negative) Independent Interpretation I performed an independent interpretation of an: EKG Interpretation: EKG showing sinus bradycardia at a rate of 50 beats per minute. QT 438, QTC 399. No acute ischemic changes or ST elevations. Chest x-ray does not demonstrate infiltrate or consolidation. Agree with radiologist's interpretation. CT head/brain does not demonstrate intracranial pathology. It does show some mucosal thickening of the sinuses, agree with radiologist's interpretation. Radiology Impression Discussion of test interpretation with radiology: I have reviewed the radiologist's reading. Radiologist Impression: CT head/brain wo IV con IMPRESSION: -No acute intracranial abnormality. -Moderate sphenoid sinus disease. XR chest 2V IMPRESSION: No acute cardiopulmonary disease. Independent Historian Clinical information obtained from an independent historian. History obtained from or confirmed by: Parent (father) External Record Review External record reviewed: Inpatient record, Office record, Outpatient record, Prior outpatient labs, Prior outpatient radiology, Primary care record and Outside ED record Prescription Management I considered prescription management with: Pain Medication and Antibiotic (Augmentin) Social Determinants Patient?s care significantly limited by Social Determinants of Health including: Other Social Determinant of Health Discharge Plan Discharge Clinical Impression: Sinusitis Patient Disposition: Home, Self-Care Instructions: Amoxicillin/Clavulanate Potassium (By mouth), Sinusitis (ED) Additional Instructions: Your labs are reassuring. You tested negative for flu, covid, rsv. You chest xray is normal. The CT of your head/brain demonstrates evidence of sinus infection within your sphenoid sinus. Augmentin is an antibiotic that has been sent to your pharmacy. Take this as prescribed over the next 7 days to treat infection. Do not stop taking these early or skip any doses as this may cause infection to worsen or return. On amoxicillin-clavulanate (augmentin), softer bowel movements are to be expected. Call your provider if you move your bowels more than 4 times a day, your bowel movements are almost all liquid, or you get a rash.? You have been provided with a referral to an ear nose throat doctor. You may call them to establish care. Follow-up with your PCP as needed. For new or worsening symptoms please return to the ED. In the case of an emergency call 911. Sarah laboratorios son tranquilizadores. Shree negativo en gripe, covid, rsv. Dinh radiograf?a de t?rax es normal. La tomograf?a computarizada de dinh leila/cerebro demuestra evidencia de infecci?n de los senos nasales dentro del seno esfenoidal. Augmentin es un antibi?hodan que rosales sido enviado a dinh farmacia. T?gutierrez seg?n lo prescrito chato los pr?ximos 7 d?as para tratar la infecci?n. No deje de tomarlos antes de tiempo ni se salte ninguna dosis, ya que esto puede hacer que la infecci?n empeore o regrese. Con amoxicilina-clavulanato (augmentin), se esperan deposiciones m?s suaves. Llame a dinh proveedor si defeca m?s de 4 veces al d?a, si sarah deposiciones son gina todas l?quidas o si tiene sarpullido. Se le rosales remitido a un otorrinolaring?logo. Puede llamarlos para establecer la atenci?n. Michael un seguimiento con dinh PCP seg?n sea necesario. Si los s?ntomas son nuevos o empeoran, regrese al servicio de urgencias. En damaris de emergencia llame al 911. Prescriptions: New amoxicillin-pot clavulanate 875-125 mg tablet 1 tab PO BID 7 Days Qty: 14 0RF No Action ketorolac 10 mg tablet 10 mg PO TID PRN (Reason: pain) 5 Days Qty: 15 0RF metoclopramide HCl [Reglan] 10 mg tablet 10 mg PO Q6H PRN (Reason: headache) Qty: 20 0RF hydroxyzine HCl 25 mg tablet 25 mg PO TID PRN (Reason: anxiety) Qty: 10 0RF Referrals: Miguel Angel Walter [Physician] - Interventions: ED Discharge Assessment Last Done: 12/10/23 17:49 Discharge Date/Time: 12/10/23 17:49 Print Language: Cambodian
[2023-12-10 12:50] VITALS: BP 138/57; PULSE 55; RESP 16; TEMP 36.6; O2SAT 99; BMI 25.2
[2023-12-10 14:59] LABS: Influenza A PCR NEGATIVE (Negative); Influenza B PCR NEGATIVE (Negative); Resp Syncy Virus RNA Qual PCR NEGATIVE (Negative); SARS COV2 PCR INHOUSE NEGATIVE (Negative)
[2023-12-10 15:46] LABS: MANUAL DIFF FLAG NO
[2023-12-10 15:57] LABS: Basophils Percent Auto 0.3 % (0-2); Eosinophils Percent Auto 0.3 % (0-4); Hematocrit 37.9 % (37.0-47.0); Imm Gran Abs Auto 0.02 X10*3/uL (0.00-0.03); Imm Gran Pct Auto 0.3 % (0.0-0.4); Lymphocytes Absolute Auto 2.5 X10*3/uL (1.2-4.9); Lymphocytes Percent Auto 35.2 % (20-40); Mean Corpuscular HGB Conc 34.3 g/dl (31.0-35.0); Mean Corpuscular Hemoglobin 31.6 pg (27.0-33.0); Mean Platelet Volume 9.3 fL (9.4-12.3); Monocytes Absolute Auto 0.4 X10*3/uL (0.1-1.2); Neutrophils Absolute Auto 4.1 x10*3/uL (2.0-8.3); Neutrophils Percent Auto 58.9 % (45-73); Platelet Count 259 X10*3/uL (160-400); Red Blood Count 4.12 X10*6/uL (4.20-5.50); Red Cell Distribution Width 12.2 % (11.0-16.0)
[2023-12-10 16:01] LABS: Prothrombin Time 12.3 SEC (11.1-13.3)
[2023-12-10 16:04] LABS: Alanine Aminotransferase 11 U/L (0-31); Albumin Level 4.2 g/dL (3.5-5.0); Alkaline Phosphatase 70 U/L (39-117); Anion Gap 10 (12-20); Aspartate Amino Transferase 14 U/L (5-31); Bilirubin Total 0.6 mg/dL (0.0-1.0); Blood Urea Nitrogen 8 mg/dL (9-16); Calcium 9.5 mg/dL (8.4-10.2); Carbon Dioxide 30 mmol/L (22-29); Chloride 105 mmol/L (96-108); Estimated Glomerular Filt Rate > 60; Glucose Random 95 mg/dL (60-115); Lipase 16 U/L (8-78); Magnesium 1.9 mg/dL (1.6-2.6); Potassium 3.8 mmol/L (3.3-5.1); Sodium 141 mmol/L (135-145); Total Protein 7.3 g/dL (6.5-8.0)
[2023-12-10 16:13] LABS: HCG Quantitative < 2 mIU/mL
[2023-12-10] MEDS: Butalb/Acetamin/Caff 50/325/40 TABLET 1 TAB PO (17:03)
[2023-12-10 17:27] LABS: Troponin-I High Sensitivity < 2.7 ng/L (<3.5-17.0)
== END 2023-12-10 17:49 | disposition home or self-care (01) ==
PROVIDERS: Physician Assistant; Physician Assistant Medical; Emergency Provider Emergency Medicine Emergency Medical Services
DX: J32.9 Chronic sinusitis, unspecified (principal); R07.9 Chest pain, unspecified; R51.9 Headache, unspecified; R11.0 Nausea; R00.1 Bradycardia, unspecified; Z11.52 Encounter for screening for COVID-19; Z20.828 Contact with and (suspected) exposure to other viral communicable diseases
CPT/HCPCS: 0241U; 36415; 70450; 71046; 80053; 83690; 83735; 84484; 84702; 85025; 85610; 93005; 99283; 99284

== ENCOUNTER → 2023-12-10 12:18 | Outpatient (BNV) | payer MEDICAID, SELFPAY | PROVIDERS: Emergency Provider Emergency Medicine Emergency Medical Services; Visit Provider Internal Medicine | DX: R00.1 Bradycardia, unspecified (principal); R94.31 Abnormal electrocardiogram [ECG] [EKG] | CPT/HCPCS: 93010 ==